=== PATIENT | male | born 1950 | race Caucasian/White ===

== ENCOUNTER 2018-07-08 17:49 | Emergency (ER) | payer MEDICARE, OTHER ==
[~2018-07-08] VITALS: Ht 167.6 cm; Wt 72.6 kg
[2018-07-08 18:15] VITALS: BP 137/80
--- NOTE | 2018-07-08 18:15 | NUR ---
TO BED # 1 AMBULATORY, REPORT GIVEN TO LINDSEY HADDAD.
--- NOTE | 2018-07-08 18:35 | NUR ---
PT. CAME INTO THE ED DUE TO L INDEX FINGER PUNCTURE. PT. STATES " I WAS NAILING A DOOR AND THE NAIL WENT THROUGH MY FINGER, I TOOK IT OUT AND I JUST WANT A TETANUS SHOT" 5/10 PAIN SHARP PAIN IN L INDEX FINGER, BLEEDING CONTROLLED. RR EVEN AND UNLABORED. DENIES ANY N/V/D. DENIES ANY FEVERS. WILL CONTINUE TO MONITOR. ER MD NOTIFIED. SAFETY PRECAUTIONS IMPLEMENTED. FAMILY MEMBER AT BEDSIDE.
--- NOTE | 2018-07-08 18:54 | NUR ---
Betty carter in ED - 07/08/18 at 1858 by LUCIE PATIENT LEFT WITHOUT BEING SEEN BY DR. NANCE. NO FURTHER CARE PROVIDED FOR PATIENT.
--- NOTE | 2018-07-08 18:59 | NUR ---
PT. AMBULATED BACK TO BED WITH . ER MD NANCE TO SEE PATIENT.
--- NOTE | 2018-07-08 19:08 | NUR ---
Pt report given to BOO ALVARADO . Transfer of care at this time.
--- NOTE | 2018-07-08 19:40 | NUR ---
Patient discharged with v/s stable. Written and verbal after care instructions given and explained. Patient verbalized understanding. Ambulatory with steady gait. All questions addressed prior to discharge. Advised to follow up with PMD.
[2018-07-08 19:49] VITALS: BP 131/79
== END 2018-07-08 19:40 | disposition home or self-care (01) ==
LOC: MED 17:49
DX: S61.331A Puncture wound without foreign body of left index finger with damage to nail, initial encounter (principal); W45.0XXA Nail entering through skin, initial encounter; Y93.89 Activity, other specified; Y92.89 Other specified places as the place of occurrence of the external cause; Y99.8 Other external cause status
CPT/HCPCS: 90471; 90715; 99283